=== PATIENT | male | born 2000 | race Caucasian/White ===

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

== ENCOUNTER 2020-08-05 21:10 | Emergency (ER) | payer OTHER ==
[~2020-08-05] VITALS: Ht 175.2 cm; Wt 70.3 kg
[2020-08-05] MEDS ORDERED: CEPHALEXIN500 M1 PO (22:46)
== END 2020-08-05 22:50 | disposition home or self-care (01) ==
LOC: ED 21:10
DX: S61.411A Laceration without foreign body of right hand, initial encounter (principal); W45.8XXA Other foreign body or object entering through skin, initial encounter; Y93.89 Activity, other specified; Y92.89 Other specified places as the place of occurrence of the external cause; Y99.8 Other external cause status

== ENCOUNTER 2020-08-16 20:08 | Emergency (ER) | payer OTHER ==
[~2020-08-16] VITALS: Ht 175.2 cm; Wt 68.0 kg
[~2020-08-16 20:08] MED LIST changes: +CEPHALEXIN500 M1 PO
== END 2020-08-16 20:39 | disposition home or self-care (01) ==
LOC: ED 20:08
DX: S61.411D Laceration without foreign body of right hand, subsequent encounter (principal); Z48.02 Encounter for removal of sutures; Z79.899 Other long term (current) drug therapy; W25.XXXD Contact with sharp glass, subsequent encounter

== ENCOUNTER → 2024-03-27 | Emergency (ER) | payer OTHER | LOC: ED 13:46 | DX: R21 Rash and other nonspecific skin eruption (principal); Z53.21 Procedure and treatment not carried out due to patient leaving prior to being seen by health care provider ==